=== PATIENT | male | born 1965 ===

== ENCOUNTER → 2019-06-25 11:52 | Outpatient (CLI) | payer BC, SELFPAY ==
--- NOTE | ~2019-06-25 | XR_ITS ---
EXAMINATION: XR shoulder LT min 2V DATE: 06/25/2019 12:19 INDICATION: Left shoulder pain. TECHNIQUE: 4 views of left shoulder were obtained. COMPARISON: None. FINDINGS: Bone alignment is normal. No fracture. There is moderate osteoarthritis of glenohumeral william nt and acromioclavicular joint. IMPRESSION: 1. Polyarticular osteoarthritis. Reviewed, dictated and finalized at location A. [employer]
== END ==
PROVIDERS: PCP Family Medicine; Visit Provider Family Medicine
DX: G89.29 Other chronic pain (principal); M19.012 Primary osteoarthritis, left shoulder
CPT/HCPCS: 73030

== ENCOUNTER 2020-07-07 09:16 | Outpatient (CLI) | payer BC, SELFPAY | END 2020-07-07 09:17 | LOC: ANHCOVIDVC 09:16 | PROVIDERS: PCP Family Medicine | DX: Z23 Encounter for immunization (principal) | CPT/HCPCS: 0001A; 91300 ==

== ENCOUNTER 2020-07-28 09:15 | Outpatient (CLI) | payer BC, SELFPAY | END 2020-07-28 09:16 | disposition home or self-care (01) | LOC: ANHCOVIDVC 09:15 | PROVIDERS: PCP Family Medicine | DX: Z23 Encounter for immunization (principal) | CPT/HCPCS: 0002A; 91300 ==

== ENCOUNTER 2021-04-28 12:44 | Outpatient (RCR) | payer BC, SELFPAY ==
[2021-04-28] MEDS: FAMOTIDINE 20 MG TABLET PO (15:08)
[2021-04-28] MEDS: ACETAMINOPHEN 325 MG TABLET 650 MG PO (15:08)
[2021-04-28] MEDS: diphenhydrAMINE HCl CAP 25 MG CAPSULE PO (15:08)
[2021-04-28 15:14] VITALS: BP 114/63; PULSE 95; RESP 20; TEMP 36.3; O2SAT 99
[2021-04-28 16:10] VITALS: BP 92/60
== END 2021-04-28 17:00 ==
LOC: AMCINF 12:44
PROVIDERS: PCP Family Medicine; Referring Provider Family Medicine; Visit Provider Internal Medicine Hematology & Oncology
DX: U07.1 COVID-19 (principal); I10 Essential (primary) hypertension; I25.10 Atherosclerotic heart disease of native coronary artery without angina pectoris; J44.9 Chronic obstructive pulmonary disease, unspecified; E11.9 Type 2 diabetes mellitus without complications
CPT/HCPCS: A9270; M0243; Q0244